=== PATIENT | female | born 1995 | race Caucasian/White ===

== ENCOUNTER 2019-02-25 01:32 | Emergency (ER) | payer BC ==
[2019-02-25 01:41] VITALS: BP 143/86
[2019-02-25] MEDS ORDERED: ONDANSETRON 4 MG TAB.RAPDIS PO ONE (03:10)
[2019-02-25] MEDS ORDERED: OXYCODONE-ACETAMINOPHEN 5-325 MG TABLET PO ONE (03:10)
--- NOTE | 2019-02-25 03:12 | ER Document Report ---
ED Medical Screen (RME) - General Chief Complaint: Flank Pain Stated Complaint: FLANK PAIN/BACK PAIN Time Seen by Provider: 02/25/19 03:10 Notes: 23-year-old female, chief complaint of flank pain that is sharp, began this evening, and has caused nausea. She denies vomiting, fever. Pain was very intense before, slightly less now. Pain is worse on the right. patient denies history of kidney stones, surgeries, or any diagnosed medical problems. LMP just completed. TRAVEL OUTSIDE OF THE [place] IN LAST 30 DAYS: No Physical Exam - Vital signs Vitals: Temp Pulse Resp BP Pulse Ox 98.1 F 102 H 24 H 143/86 H 99 02/25/19 01:38 02/25/19 01:38 02/25/19 01:38 02/25/19 01:38 02/25/19 01:38 - Abdominal Inspection: Normal Tenderness: Nontender - Back Back: Tender - Positive CVA tenderness Course - Re-evaluation Re-evalutation: I have greeted and performed a rapid initial assessment of this patient. A comprehensive ED assessment and evaluation of the patient, analysis of test results and completion of the medical decision making process will be conducted by additional ED providers. - Vital Signs Vital signs: Temp Pulse Resp BP Pulse Ox 98.1 F 102 H 24 H 143/86 H 99 02/25/19 01:38 02/25/19 01:38 02/25/19 01:38 02/25/19 01:38 02/25/19 01:38
[2019-02-25 04:19] LABS: APPEARANCE,URINE CLOUDY; BILIRUBIN,URINE NEGATIVE (NEGATIVE); COLOR,URINE YELLOW; GLUCOSE, URINE NEGATIVE (NEGATIVE); KETONES,URINE TRACE mg/dL (NEGATIVE); LEUKOCYTE ESTERASE,URINE LARGE (NEGATIVE); NITRITE,URINE NEGATIVE (NEGATIVE); PROTEIN,URINE 100 mg/dL (NEGATIVE); URINE SPECIFIC GRAVITY 1.016; UROBILINOGEN,URINE NEGATIVE mg/dL (<2.0)
== END 2019-02-25 05:55 | disposition left against medical advice (07) ==
LOC: ER 01:32
DX: R10.9 Unspecified abdominal pain (principal); R11.0 Nausea
CPT/HCPCS: 99281; 81025; 81001; S0119